=== PATIENT | female | born 1965 | race African-American/Black ===

== ENCOUNTER 2019-01-08 09:35 | Day surgery (SDC) | payer OTHER ==
[2019-01-07 14:53] VITALS: BMI 36.3
[2019-01-08] MEDS ORDERED: PROPOFOL 20 ML ONE (10:38)
[2019-01-08] MEDS ORDERED: MIDAZOLAM HCL 2 MG/2 ML SINGLE DOSE VIAL ONE (10:38)
[2019-01-08] MEDS ORDERED: ONDANSETRON 4 MG/2 ML VIAL ONE (10:40)
[2019-01-08] MEDS ORDERED: ceFAZolin SODIUM 1 GM VIAL ONE (10:40)
[2019-01-08] MEDS ORDERED: LIDOCAINE HCL 2% JELLY (5 ML/TUBE) ONE (10:40)
[2019-01-08] MEDS ORDERED: DEXAMETHASONE SOD PHOSPHATE 4 MG/1 ML VIAL ONE (10:40)
[2019-01-08] MEDS ORDERED: LIDOCAINE HCL/PF 2% SDV 5ML VIAL ONE (10:40)
[2019-01-08] MEDS ORDERED: KETOROLAC TROMETHAMINE 30 MG/1 ML VIAL ONE (10:40)
[2019-01-08] MEDS ORDERED: BUPIVACAINE HCL/PF 0.5% (5MG/ML) 10 ML VIAL ONE (10:44)
[2019-01-08] MEDS ORDERED: MORPHINE SULFATE 10 MG/1 ML *VIAL ONE (10:45)
[2019-01-08] MEDS ORDERED: BUPIVACAINE HCL/PF 0.5% (5MG/ML) 10 ML VIAL IJ ONE ×2 (11:18→11:27)
[2019-01-08] MEDS ORDERED: MORPHINE SULFATE/PF 10 MG/ML ML IT ONE (11:27)
[2019-01-08] MEDS ORDERED: ONDANSETRON 4 MG/2 ML VIAL IVPUSH PRN (11:49)
[2019-01-08] MEDS ORDERED: PROMETHAZINE HCL 25 MG/1 ML VIAL IVPUSH PRN (11:49)
[2019-01-08] MEDS ORDERED: oxyCODONE HCL 5 MG TABLET PO PRN ×2 (11:49)
[2019-01-08 12:43] VITALS: TEMP 97.8
--- NOTE | 2019-01-08 13:06 | CONS ---
DATE OF CONSULTATION: 01/08/2019 PREOPERATIVE DIAGNOSIS: Internal derangement and tearing of the meniscus to the right knee. 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 PROCEDURE PERFORMED: Operative arthroscopy of the right knee with partial medial and lateral meniscectomy, chondroplasty, synovectomy, and joint debridement. SURGEON: Bereket Soriano MD VOICE NETWORK ENGINEER: ELLYN Marin ANESTHESIA: , general anesthesia. DESCRIPTION OF PROCEDURE: The procedure consisted of the patient being brought into the operating room and gently transferred from the stretcher to the OR table with all bony prominences well padded. The right leg was prepared and draped in a sterile fashion. Patient was given intravenous antibiotics and copious irrigation throughout the procedure to minimize risk of infection. Complete risks, benefits, and alternatives discussion were conducted with the patient which was inclusive of but not limited to infection, bleeding, , paralysis, increased pain, need for repeat surgery. Patient asked questions, understood the procedure, and decided to proceed with surgical treatment. Following sterile preparation and draping of the right leg, an appropriate timeout was conducted which was inclusive of but not limited to surgery, type of surgery, surgeon, anesthesiologist, location of surgery. Following this and sterile preparation and draping of the right leg, leg was exsanguinated using a rubber Esmarch bandage and tourniquet inflated to 350 mmHg. Suprapatellar, medial, and lateral joint line portals were used to introduce the arthroscope and arthroscopic instruments. The knee was examined. There was noted to be hypertrophic synovium in the suprapatellar pouch requiring synovectomy. The anterior surface of the patella damage consisted of chondromalacia. This was smoothed using shaver and radiofrequency wand. Medial and lateral gutters were without plaque or loose body. Medial meniscus was found to have tear of the posterior horn which was resected using shaver and radiofrequency wand. Intercondylar region was noted to have joint debris, and joint debridement was performed. Lateral meniscus was then evaluated, and there was noted to be a tear of the posterior horn which was resected using shaver and radiofrequency wand. The knee was then copiously irrigated with sterile saline irrigant. The wounds were closed with 4-0 undyed Vicryl followed by Steri-Strips, Xeroform, 4 x 4's, sterile Webril, Rob bandage, and knee immobilizer. The tourniquet was deflated after approximately 20 minutes of tourniquet time. There were no intraoperative complications. BEREKET SORIANO M.D. [id number]
[2019-01-08 15:16] VITALS: BP 108/66; PULSE 60
== END 2019-01-08 14:50 | disposition home or self-care (01) ==
LOC: FASU 09:35
PROVIDERS: ATTEND Orthopaedic Surgery
PROC: 0SBC4ZZ Excision of Right Knee Joint, Percutaneous Endoscopic Approach (ICD-10-PCS; 2019-01-08)
PROC: 0SBC4ZZ Excision of Right Knee Joint, Percutaneous Endoscopic Approach (ICD-10-PCS; 2019-01-08)
PROC: 0SBC4ZZ Excision of Right Knee Joint, Percutaneous Endoscopic Approach (ICD-10-PCS; principal; 2019-01-08 11:18)
DX: S83.241A Other tear of medial meniscus, current injury, right knee, initial encounter (principal); S83.281A Other tear of lateral meniscus, current injury, right knee, initial encounter; M22.41 Chondromalacia patellae, right knee; M67.261 Synovial hypertrophy, not elsewhere classified, right lower leg; X58.XXXA Exposure to other specified factors, initial encounter; Y93.9 Activity, unspecified; Y92.9 Unspecified place or not applicable
CPT/HCPCS: 94760